=== PATIENT | female | born 1935 | race Caucasian/White ===

== ENCOUNTER 2016-05-03 08:56 | Emergency (ER) | payer OTHER ==
[~2016-05-03] VITALS: Ht 165.1 cm; Wt 63.5 kg
[~2016-05-03 08:56] MED LIST: FIBER625 MG PO; MULTI-DAY VITA1 EACH PO
[2016-05-03 09:07] VITALS: BP 152/84
== END 2016-05-03 09:32 | disposition admitted as inpatient to this hospital (09) ==
LOC: ERH 08:56
DX: M54.5 Low back pain (principal)

== ENCOUNTER 2016-05-09 07:09 | Emergency (ER) | payer OTHER ==
[~2016-05-09] VITALS: Ht 165.1 cm; Wt 63.5 kg
[2016-05-09 07:13] VITALS: BP 163/82
--- NOTE | 2016-05-09 07:46 | ED NECK/BACK PAIN COMPLAINT ---
See Addendum History of Present Illness General Chief Complaint: Low Back Pain/Injury Stated Complaint: LOWER BACK PAIN Source: patient, Exam Limitations: poor historian Vital Signs & Intake/Output Vital Signs & Intake/Output Vital Signs Date Time Temp Pulse Resp B/P Pulse O2 O2 Flow FiO2 Ox Delivery Rate 05/09 0713 97.5 88 16 163/82 98 Room Air Allergies Coded Allergies: propofol (10/19/15) Reconcile Medications Multivitamin (Multi-Day Vitamins) 1 EACH TABLET 1 TAB PO DAILY SUPPLEMENT ( Reported) Polycarbophil (Fiber) 625 MG TABLET 1,250 MG PO DAILY rectal bleed Triage Note: 80 YEAR OLD FEMALE STATES THAT SHE KEEPS COMING TO ER DUE TO BACK PAIN AND THAT SHE FEELS THE DOCTORS ARE NOT TEACHING HER ANY EXERCISES FOR THE BACK PAIN, WHEN ASKED ABOUT INJURY SHE STATES THAT SHE FELL MONTHS AGO , BUT THE PROBLEM IS THAT SHE HAS CANCER. WHEN THIS NURSE ASKED WHAT TYPE OF CANCER , PT STATES THAT SHE DOES NOT KNOW, PT DOES NOT KNOW THE NAME OF THE DOCTOR THAT DIAGNOSED HER AND SHE HAS NO PRIMARY AND DOES NOT GO FOR TREATMENTS. Triage Nurses Notes Reviewed? yes HPI: Patient presents for evaluation of low back pain that has been present for months. Patient attributes it to falling last year with problems symptoms. Patient is describing a severe intermittent sharp stabbing low back pain that gets worse with movement. Nothing seems to make her feel better. She denies any associated urinary or fecal incontinence or urinary retention. She denies paresthesias or leg pains. The patient denies any past medical history or current medications. Past History Travel History Traveled to [place] past 21 day No Medical History Any Pertinent Medical History? see below for history Neurological: NONE EENT: NONE Cardiovascular: NONE Respiratory: NONE Gastrointestinal: rectal bleeding intermittent RLQ pain Hepatic: NONE Renal: NONE Musculoskeletal: degen joint disease Psychiatric: NONE (pt denies ? 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 FATHER, , Age 80; Cause: Natural . Hx Contributory? No Review of Systems Review of Systems Constitutional: Reports: no symptoms. Eyes: Reports: no symptoms. Ears, Nose, Throat, Mouth: Reports: no symptoms. Respiratory: Reports: no symptoms. Cardiovascular: Reports: no symptoms. Gastrointestinal/Abdominal: Reports: no symptoms. Musculoskeletal: Reports: see HPI. Skin: Reports: no symptoms. Neurological/Psychological: Reports: no symptoms. All Other Systems: Reviewed and Negative Physical Exam Physical Exam Neck: see below Comments: Gen.: Well-nourished, well-developed, no acute respiratory distress. Head: Normocephalic, atraumatic. Eyes: Normal inspection bilaterally Ears: Normal inspection bilaterally Nose: Normal inspection, nasal cannula in place Throat/mouth : Moist mucosa Neck: Supple, full range of motion, no goiter Heart: Regular rate and rhythm Lungs: Quiet respirations Back: Decreased range of motion due to pain, mild bilateral sacroiliac tenderness, no ecchymoses and soft tissue swelling erythema. Extremities: Lower extremities: Normal deep tendon reflexes, normal sensation to light touch, no saddle paresthesias. Normal strength bilaterally. Neurologic: Cranial nerves grossly intact, speech is clear Skin: warm and dry Psychiatric: Calm, cooperative, no apparent delusions or hallucinations Progress Differential Diagnosis: cauda equina syn, herniated disc, myofascial strain Plan of Care: see d/c instruction. Comments: Patient's arrived to the room after physical examination. Although the patient states she has no primary care physician and doesn't know where to turn for her back pains, her states that she does have a primary care physician and has an appointment pending this week. Patient states she's never had physical therapy but according to her she began physical therapy but was unable to follow through with a full course. Patient's states that she never complies with follow-up and refuses to take medications. He seems somewhat frustrated the patient's presentation to the emergency department as he states that they have been to the emergency department plenty of times before and the problem really is with the patient herself does not comply with treatment plan. He states she has a history of spinal stenosis and feels that her back pain issues are related to this and not the fall she attributes it to. Patient states she will consider taking an anti-inflammatory and muscle relaxer. The patient's sensorium is clear and she answers questions readily. I suspect that the issues that have come up regarding the patient's inconsistent medical care or due to an underlying psychiatric disorder. Departure Departure Disposition: HOME OR SELF CARE Condition: Stable Clinical Impression Primary Impression: Low back pain Qualifiers: Chronicity: chronic Back pain laterality: bilateral Sciatica presence: without sciatica Qualified Codes: M54.5 - Low back pain; G89.29 - Other chronic pain Referrals: SATYA SANTIAGO MD (PCP/Family) Additional Instructions: Mobic and Flexeril as prescribed. Follow-up with your primary care doctor this week for reevaluation and possible referrals to physical therapy, a back specialist and further imaging studies. Return if any concerns or sudden worsening. Thank you for choosing the [facility] Emergency Department for your care. It was a pleasure to serve you today. Rafael Chicas M.D. [facility] Departure Forms: Customer Survey General Discharge Information Prescriptions: Current Visit Scripts Meloxicam (Mobic) 1 TAB PO DAILY #30 TAB Cyclobenzaprine HCl 1 TAB PO BID PRN MUSCLE SPASMS #30 TAB
[2016-05-09] MEDS ORDERED: MOBIC7.5 M1 PO (07:48)
[2016-05-09] MEDS ORDERED: CYCLOBENZAPRINE10 M1 PO (07:48)
== END 2016-05-09 07:59 ==
LOC: ERH 07:09
DX: M54.5 Low back pain (principal)

== ENCOUNTER 2016-07-24 09:23 | Emergency (ER) | payer OTHER ==
[~2016-07-24] VITALS: Ht 165.1 cm; Wt 59.0 kg
[~2016-07-24 09:23] MED LIST changes: +CYCLOBENZAPRINE10 M1 PO; +MOBIC7.5 M1 PO
[2016-07-24 09:41] VITALS: BP 142/82
--- NOTE | 2016-07-24 10:17 | ED GENERAL ADULT ---
History of Present Illness General Chief Complaint: General Adult Stated Complaint: PER PT SICK TO STOMACH, WEAK Source: patient Exam Limitations: no limitations Vital Signs & Intake/Output Vital Signs & Intake/Output ED Intake and Output 07/25 0000 07/24 1200 Intake Total 0 Output Total Balance 0 Intake, Oral 0 Patient 130 lb Weight Allergies Coded Allergies: propofol (UNKNOWN 07/24/16) Reconcile Medications Cyclobenzaprine HCl 10 MG TABLET 1 TAB PO BID PRN MUSCLE SPASMS Meloxicam (Mobic) 7.5 MG TABLET 1 TAB PO DAILY back pain Multivitamin (Multi-Day Vitamins) 1 EACH TABLET 1 TAB PO DAILY SUPPLEMENT ( Reported) Polycarbophil (Fiber) 625 MG TABLET 1,250 MG PO DAILY rectal bleed Triage Note: TRIAGE: PT TO ER STATES "I JUST FELT VERY WEAK AND THOUGHT I SHOULD MAKE SURE EVERYTHING WAS ALL RIGHT. I GET SICK TO MY STOMACH AND THEN IT GOES AWAY MOST OF THE TIME BUT TODAY I'M REALLY SICK TO MY STOMACH". ONSET DURING THE NIGHT. -VOMITING. DENIES ANY PAIN. Triage Nurses Notes Reviewed? yes HPI: This patient is an 81-year-old female who presented to the emergency department today for a chief complaint of, "I just feel weak." She reported that her symptoms started this morning when she woke up. She reported that she has not had anything to eat yet today and she is feeling hungry. Requesting a food tray. The patient denied any fevers, chills, chest pain, breathing, arm pain, jaw pain, numbness or tingling in her extremities, headaches, visual changes, abdominal pain, nausea, vomiting, urinary burning, urgency, frequency, blood in the urine, diarrhea, constipation, or blood in the stool. Patient reported, "no no I am fine I did not have any of that I feel fine." (PATEL RAMIREZ,AGUS) Past History Travel History Traveled to [place] past 21 day No Medical History Any Pertinent Medical History? see below for history Neurological: NONE EENT: NONE Cardiovascular: NONE Respiratory: NONE Gastrointestinal: rectal bleeding Hepatic: NONE Renal: NONE Musculoskeletal: degen joint disease Psychiatric: NONE (pt denies ? 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 FATHER, , Age 80; Cause: Natural . Hx Contributory? No (AGUS SWEENEY PA-C) Review of Systems Review of Systems Constitutional: Reports: see HPI. EENTM: Reports: no symptoms. Respiratory: Reports: no symptoms. Cardiovascular: Reports: no symptoms. GI: Reports: no symptoms. Genitourinary: Reports: no symptoms. Musculoskeletal: Reports: no symptoms. Skin: Reports: no symptoms. Neurological/Psychological: Reports: no symptoms. Hematologic/Endocrine: Reports: no symptoms. Immunologic/Allergic: Reports: no symptoms. All Other Systems: Reviewed and Negative (AGUS SWEENEY PA-C) Physical Exam Physical Exam General Appearance: well developed/nourished, no apparent distress, alert, awake Comments: Well-developed well-nourished person in no acute distress HEENT: Normal EENT exam, head normocephalic/atraumatic, moist mucous membranes PERRLA bilaterally Nose is atraumatic. External auditory canal and Tympanic membranes clear. Pharynx normal. No swelling or edema. Neck: Supple, no lymphadenopathy Back: Normal gait. Normal inspection Cardiovascular: Regular rate and rhythm with no murmurs, rubs, or gallops Respiratory: Chest nontender. No respiratory distress. Breath sounds clear to auscultation bilaterally with no wheezes, rales, rhonchi Abdomen: Soft and nondistended. Normoactive bowel sounds. No organomegaly. Nontender to palpation. No rebound or guarding Extremity: No edema, no calf tenderness to palpation, normal and equal pulses. Neuro: Alert oriented x3, cranial nerves II through XII grossly intact. Skin: No appreciable rash on exposed skin, skin is warm and dry. Psych: Mood and affect is normal Core Measures ACS in differential dx? No CVA/TIA Diagnosis: No Severe Sepsis Present: No Septic Shock Present: No (AGUS SWEENEY PA-C) Progress Differential Diagnoses I considered the following diagnoses in my evaluation of the patient: [General weakness, influenza, viral syndrome] Plan of Care: Laboratory Tests 07/24/16 1252: Lactic Acid Cancelled Initial ED EKG: normal axis, normal intervals, normal sinus rhythm, LVH, no ST T wave changes, 75 BPM Comments: 07/24/2016 10:35:20 AM: The patient reported that she needs to leave to go to [place] with her . (AGUS SWEENEY PA-C) Departure Departure Disposition: ER WALKOUT Condition: Stable Clinical Impression Primary Impression: Weakness Referrals: SATYA SANTIAGO MD (PCP/Family) Departure Forms: Customer Survey General Discharge Information (AGUS SWEENEY PA-C) PA/YARN TESTER Co-Sign Statement Statement: ED Attending supervision documentation- [X] I saw and evaluated the patient. I have also reviewed all the pertinent lab results and diagnostic results. I agree with the findings and the plan of care as documented in the PA's/YARN TESTER's documentation. [X] I have reviewed the ED Record and agree with the PA's/YARN TESTER's documentation. [] Additions or exceptions (if any) to the PAs/YARN TESTER's note and plan are summarized below: [] (TAWNY DORMAN MD) Critical Care Note Critical Care Note Critical Care Time: non-applicable (AGUS SWEENEY PA-C) Departure Forms: Customer Survey General Discharge Information (AGUS SWEENEY PA-C) PA/YARN TESTER Co-Sign Statement Statement: ED Attending supervision documentation- [X] I saw and evaluated the patient. I have also reviewed all the pertinent lab results and diagnostic results. I agree with the findings and the plan of care as documented in the PA's/YARN TESTER's documentation. [X] I have reviewed the ED Record and agree with the PA's/YARN TESTER's documentation. [] Additions or exceptions (if any) to the PAs/YARN TESTER's note and plan are summarized below: [] (TAWNY DORMAN MD) Critical Care Note Critical Care Note Critical Care Time: non-applicable (AGUS SWEENEY PA-C)
[2016-07-24 10:19] LABS: ABSOLUTE BASOPHIL COUNT 0 /CUMM (0.0-0.2); ABSOLUTE EOSINOPHIL COUNT 0.2 /CUMM (0.0-0.7); ABSOLUTE GRANULOCYTE CT 4.5 /CUMM (1.4-6.5); ABSOLUTE MONOCYTE COUNT 0.5 /CUMM (0.10-0.60); BASOPHIL % 0.4 % (0.0-2.0); EOSINOPHIL % 2.7 % (0-5); GRANULOCYTE % 73.4 % (42.2-75.2); HEMATOCRIT 45.8 % (37-47); MEAN CORPUSCULAR HGB 28.7 PG (27.0-31.0); MEAN CORPUSCULAR HGB CONC 32.8 G/DL (33.0-37.0); MEAN CORPUSCULAR VOLUME 87.7 FL (81.0-99.0); MEAN PLATELET VOLUME 8.1 FL (7.4-10.4); PLATELET COUNT 203 /CUMM (130-400); RBC DISTRIBUTION WIDTH 14.6 % (11.5-14.5); RED BLOOD CELL CT 5.22 /CUMM (4.20-5.40); WHITE BLOOD CELL COUNT 6.1 /CUMM (4.8-10.8)
[2016-07-24 10:21] LABS: PT 10.8 SEC (9.4-12.5); PTT 33 SEC (25-37)
== END 2016-07-24 11:16 ==
LOC: ERH 09:23
PROVIDERS: Emergency Medicine
DX: R53.1 Weakness (principal)
CPT/HCPCS: 93005; 93010

== ENCOUNTER 2016-09-07 09:51 | Inpatient (IN) | payer OTHER ==
[~2016-09-07] VITALS: Ht 167.6 cm; Wt 67.2 kg
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
--- NOTE | 2016-09-07 10:16 | NUR ---
PT REFUSING ALL LAB WORK
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
--- NOTE | 2016-09-07 10:19 | NUR ---
PT THEN STATES CALL MY SO HE CAN COME AND TAKE ME HOME
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
--- NOTE | 2016-09-07 10:43 | NUR ---
SPOUSE ALSO STATES HE CAN'T TAKE HER HOME THIS WAY AND REQUESTING PSYCH EVAL.
[2016-09-07 10:47] LABS: ABSOLUTE BASOPHIL COUNT 0 /CUMM (0.0-0.2); ABSOLUTE EOSINOPHIL COUNT 0 /CUMM (0.0-0.7); ABSOLUTE GRANULOCYTE CT 4.7 /CUMM (1.4-6.5); ABSOLUTE LYMPH COUNT 0.8 /CUMM (1.2-3.4); ABSOLUTE MONOCYTE COUNT 0.4 /CUMM (0.10-0.60); BASOPHIL % 0.4 % (0.0-2.0); EOSINOPHIL % 0.4 % (0-5); GRANULOCYTE % 79.4 % (42.2-75.2); HEMATOCRIT 43.8 % (37-47); MEAN CORPUSCULAR HGB CONC 33.9 G/DL (33.0-37.0); MEAN CORPUSCULAR VOLUME 85.7 FL (81.0-99.0); MEAN PLATELET VOLUME 8.1 FL (7.4-10.4); PLATELET COUNT 212 /CUMM (130-400); RED BLOOD CELL CT 5.11 /CUMM (4.20-5.40)
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
--- NOTE | 2016-09-07 11:11 | NUR ---
CRITICAL TEST RESULTS [id number] CAITY CROWELL 81 F TESTS AND RESULTS: LACTIC ACID 2.2 Results received and read back by: SERENA CHIU Results received date and time: 09/07/16 1111 The following provider was notified of the results, and read the results back: DR. MILNER Notified date and time: 09/07/16 at 1111
--- NOTE | 2016-09-07 11:12 | NUR ---
REFUSING CHEST XRAY, DR MILNER AWARE
--- NOTE | 2016-09-07 11:52 | NUR ---
DAUGHTER HERE FOR VISIT
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
--- NOTE | 2016-09-07 13:24 | NUR ---
PER PT'S DAUGHTER AND PTS HUSBANDS SON,THEY FEEL THAT IT ISNT SAFE FOR PT TO RETURN HOME SECONDARY TO SAFETY ISSUES.
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
--- NOTE | 2016-09-07 16:02 | NUR ---
PT AMBULATED TO AND FROM RESTROOM WITH ASSISTANCE OF THIS RN.
--- NOTE | 2016-09-07 18:00 | NUR ---
Late Case Mgmnt Note TSF: Met with and family. Introduced myself and Donna and our roles. Discussed plan with family, we spoke on multiple possible plans of care. Family told me that son Reggie was the POA. They believe he is financial and medical. Reggie's number is [phone] (cell). There seem to be multiple family dynamics present. I called and spoke with Reggie and he did confirm that he is the POA. I asked him to either bring us the POA paperwork or to please fax it to us. Initially he stated that he could only get it to me after 1600pm on 09/08/16. He did fax all the paperwork over to us tonight at approximately 1735pm. We did set up a family meeting for 09/08/16 at 1200pm (noon). We will be calling Reggie on his cell as he will be unable to make the in person. I have also updated the family out in the waiting room. Donna, Sandra and myself answered their questions at that time. I asked them whomever could come for this meeting, it would be good to all be on the same page for plan of care for patient. Family agreeable, though all not able to be present. states he will be here. All aware of time of meeting, to gather initially at 1145am in the er waiting room and to ask for case management. Spent several hours with and family ( in person and on phone) going over plans of care and setting up family meeting. Spoke with Umu about meeting and she will notify social work. Case management continuing to follow.
--- NOTE | 2016-09-07 20:13 | NUR ---
PT RESTING ON STRETCHER, SITTER AT BEDSIDE. NO COMPLAINTS AT THIS TIME. VSS. FOOD BOX ORDERED.
--- NOTE | 2016-09-07 23:30 | NUR ---
PATIENT AMBULATORY TO BATHROOM W/ SITTER W/ STABLE GAIT NOTED, MOVED FROM ROOM 9 TO ROOM 7 TO BE CLOSER TO BATHROOM FOR COMFORT.
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
--- NOTE | 2016-09-08 01:45 | NUR ---
PATIENT NOTED TO BE ATTEMPTING TO GET OUT OF BED STATING, "I'M GOING HOME." NOTED TO BE OPENING AND CLOSING DOOR TO ROOM, REORIENTED TO ROOM BY RN AND MST, SITTER REMAINS W/ PATIENT. PATIENT RELUCTANT TO VERBAL DEESCALATION, ATTEMPTS MADE TO SET LIMITS.
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
--- NOTE | 2016-09-08 02:37 | NUR ---
PATIENT REMAINS AWAKE, LIGHTS REMAIN DIMMED TO DECREASE STIMULI, SITTER REMAINS W/ PATIENT. PATIENT NOTED TO BE PULLING AT 4PT RESTRAINTS AT THIS TIME, WILL CONTINUE TO MONITOR.
--- NOTE | 2016-09-08 03:51 | NUR ---
PATIENT REMAINS AWAKE, INTERMITTENTLY PULLING AT RESTRAINTS. PATIENT CONTINUES TO TALK TO SELF INTERMITTENTLY IN ROOM, REMAINS CONFUSED. SITTER REMAINS W/ PATIENT.
--- NOTE | 2016-09-08 04:55 | NUR ---
PATIENT REMAINS AWAKE, ATTEMPTING TO SIT UP, PULLING AT RESTRAINTS INTERMITTENTLY STATING, "I'M GETTING OUT OF HERE!" SITTER REMAINS W/ PATIENT, LIGHTS REMAIN DIMMED TO DECREASE STIMULI. SITTER REORIENTING PATIENT W/ RN AND STAFF CONTINUES TO SET LIMITS.
--- NOTE | 2016-09-08 05:54 | NUR ---
PATIENT REMAINS AWAKE, STATING "I WANT TO LEAVE, I WANT TO GO GET MY DOG. TAKE THESE OFF, I'M GETTING OUT OF HERE!" PATIENT REMAINS IN 4PT RESTRAINTS FOR PATIENT' STAFF SAFETY. PATIENT PULLING AT RESTRAINTS, SITTING UP AND INTERMITTENT MILD THRASHING ON STRETCHER. SITTER REMAINS W/ PATIENT, REORIENTING TO ED AND POC, LIMTS CONTINUE TO BE SET.
--- NOTE | 2016-09-08 07:18 | NUR ---
ASSUMED CARE, AWAKE, REMAINS IN RESTRAINTS, (4 POINT HARD). SITTER IN ATTENDANCE.
--- NOTE | 2016-09-08 07:45 | NUR ---
STRUGGLING AGAINST RESTRAINTS, YELLING OUT NAMES.
--- NOTE | 2016-09-08 08:00 | NUR ---
BREAKFAST TRAY ORDERED.
--- NOTE | 2016-09-08 08:50 | NUR ---
TELEPHONE INQUIRY BY DAUGHTER , STATES PT CAN'T TAKE HALDOL, MAKES HER MORE AGITATED.
--- NOTE | 2016-09-08 09:01 | NUR ---
DAUGHTER MANDEEP CALLED, STATES PT CAN'T TAKE HALDOL, HYDROXYZINE WORKS FOR BETTER FOR HER.
--- NOTE | 2016-09-08 09:05 | NUR ---
CALMER NOW, FED BREAKFAST. ATTEMPTED TO USE BEDPAN, UNABLE TO VOID. LEFT UPPER AND RIGHT LOWER RESTRAINT REMOVED.
--- NOTE | 2016-09-08 09:15 | NUR ---
TELEPHINE INQUIRY BY LUIGI (SON AND POA). DOES NOT WANT HIS MOTHER TO GET HALDOL OR ATIVAN, AND IS WORKING ON GETTING HIS MOTHER INTO A FACILITY IN [facility].
--- NOTE | 2016-09-08 09:35 | NUR ---
REMAINING RESTRAINTS REMOVED, ASSISTED TO BATHROOM, VOIDED QS. REFUSED TO GO BACK TO ROOM. ORDER NO. 10 CALLED, ASSISTED TO STRETCHER.
--- NOTE | 2016-09-08 09:39 | NUR ---
BECOMING AGITATED, WANTS TO GET OOB AND GO TO ATHROOM, REFUSED PO ATARAX. MEDICATE WITH BENDARYL 50 MG IM.
--- NOTE | 2016-09-08 10:30 | NUR ---
SLEEPING AT PRESENT. SITTER IN ATTENDANCE.
--- NOTE | 2016-09-08 11:34 | NUR ---
Case Mgmnt TSF: Call placed to [facility] at [phone]. I spoke with Mary Ann--[employer] of Sales. She knew of patient and knew of meeting that there was scheduled for tomorrow by son Reggie. We discussed some of the behaviors over night and Mary Ann did not seem to feel they would be a major deterrent. Mary Ann is going to discuss with canteen operator Milly and Dana the commercial lines account executive of [facility]. They have a locked memory unit; they have a [facility] doctor: Dr. Marika Fitzgerald; and they have a visiting physician there. Mary Ann will get back to me. Case managment continuing to follow.
--- NOTE | 2016-09-08 11:40 | NUR ---
Case Mgmnt TSF: Call back from Mary Ann at [facility]. They are not worried about patient. They are faxing over an assessment for us to look over. They are requesting a TB test be placed. They would be able to take patient tomorrow if appropriate. They are aware we are having a family meeting at noon. Case management continuing to follow.
--- NOTE | 2016-09-08 11:45 | NUR ---
Case Mgmnt TSF: I went out and spoke with Mr. Medellin. He is aware that we are waiting for a couple other family members. We will get him when we are ready to go to meeting room. Case management continuing to follow.
--- NOTE | 2016-09-08 12:05 | NUR ---
Case Mgpurvit TSF: Donna and myself had Mr. Medellin and other family members follow us to [facility] for meeting. Left word with deputy united states marshal to please direct any other family members to us in that room if they came afterwards. Case marge continuing to follow.
--- NOTE | 2016-09-08 12:15 | NUR ---
PT ATTEMPTING TO GET OOB, RE-DIRECTED BACK TO BED WITH ASSISTANCE OF 3 STAFF.
--- NOTE | 2016-09-08 12:30 | NUR ---
UNSTEADY ON FEET, CONFUSED TO DATE , TIME AND PLACE, UNABLE TO STAND WITHOUT ASSISTANCE.
--- NOTE | 2016-09-08 12:40 | NUR ---
Case mgmnt TSF: Donna Sanz, Mikayla, myself, Mr. Vignesh, Desiree, Selena, Chelly (later), another family member were physically present and JASON Jamison ([phone]) was on the phone. LUCIANOGraciela paperwork had been faxed the previous night to us. Reggie stated that he was going to the bank after work (1600pm) and was then going to [facility] to sign paperwork and other correction items with them. We all discussed plan of care for patient. I will try and get onsite from [facility] today. I will call Milly back (Dir. Of Nursing) and see if she can come out. I will also go through paperwork from facility with family and get that back to [facility]. POA and family are in agreement with plan at this time. Case management continuing to follow.
--- NOTE | 2016-09-08 12:45 | NUR ---
CLIMBING OUT OF BED, ASSISTED TO BATHROOM, THEN REFUSED TO GET BACK TO BED, HITTING AND PICHING STAFF. SECURITY HERE TO ASSIST. PLACED IN NET BED . MEDICATED WITH ZYPREXA 10 MG IM LEFT DELTOID.
--- NOTE | 2016-09-08 13:00 | NUR ---
Case Mgmnt TSF: Family brought back to consult room to wait to visit patient. They are aware we need to go over some paperwork with them. Aware of plan and answered additional questions for them. Case mgmnt continuing to follow.
--- NOTE | 2016-09-08 13:15 | NUR ---
Case Mgmnt TSF: I called [facility] and spoke with Milly regarding possible onsite today for patient. Milly will not be able to onsite today but will be able to onsite tomorrow 09/09/16 between 830--0900am. They are requesting PPD and cxray for patient. I updated Dr. Chicas and SHERLEY Salter. Case mgmnt continuing to follow.
--- NOTE | 2016-09-08 14:06 | NUR ---
PT CALMER, SLEEPING INTERMITTATNLY, RESPIRATIONS NON-LABORED. SITTER IN ATTENDANCE. DAUGHTER VISITING.
--- NOTE | 2016-09-08 14:30 | NUR ---
Case Mgmnt TSF: I went in and met with family regarding paperwork for facility regarding ADL's. They answered questions as best they could. I will fax over information to them. Case mgmnt continuing to follow.
--- NOTE | 2016-09-08 15:15 | NUR ---
UPON WALKING INTO ROOM, PT WAS ATTEMPTING TO GET OUT OF BED, STAFF ALSO TRIED TO REDIRECT PATIENT BACK INTO BED, BUT PT IS REFUSING TO COOPERATE. PT IS BECOMING COMBATIVE WITH STAFF WHEN TRYING TO ASSIST INTO BED. SECURITY, THIS RN PRICILA Begum RN AND KOSTAS LEPE AT BEDSIDE TO ASSIST PT BACK TO BED.
--- NOTE | 2016-09-08 15:19 | NUR ---
PLACED IN HOSPITAL BED, AGITATED, TRYING TO GET OOB, 2 POINT SOFT RESTRAINTS INITIATED.
--- NOTE | 2016-09-08 15:20 | NUR ---
Case Mgmnt TSF: I faxed over information to Milly at [facility]. Fax confirmation received. Will follow up with them. Case mgpurvit continuing to follow.
--- NOTE | 2016-09-08 15:25 | NUR ---
DESPITE BEING IN TWO POINT RESTRAINTS, PT CONTINUES TO BE AGGRESSIVE AND TRIED TO KICK THIS RN, JUSTIN STAFF AT BEDSIDE TO ATTEMPT TO REDIRECT PT, WITHOUT SUCCESS. PT THREATENING STAFF AND TRYING TO GRAB AT STAFF. PT PLACED IN ADDITIONAL TWO RESTRAINTS WITH DR. VALLE AT BEDSIDE.
--- NOTE | 2016-09-08 15:34 | NUR ---
CARE ASSUMED BY THIS RN NOW. VERY UNCOOPERATIVE AND COMBATIVE. ASKING TO USE BATHROOM BUT REFUSES TO USE BED [facility]. PT EDUCATED ABOUT IMPORTANCE ABOUT HOW IT IS UNSAFE FOR PT TO AMBULATE DUE TO BEING A FALL RISK AND AMS. DR. VALLE AWARE.
--- NOTE | 2016-09-08 15:43 | NUR ---
Case Mgmnt TSF: [facility] from Milly-inspector exhaust emissions and Dana Exec Director. Numbers for Milly are as follows: (cell) [phone]; (phone) [phone]; (fax) [phone]. Main number for [place] is : . They received faxed clinical and their assessment form back. They are aware that we have ordered PPD and cxray per their request. They let us know that they may send [facility] out to do onsite assessment of the patient, but someone will be here tomorrow morning to do so. Case management continuing to follow.
--- NOTE | 2016-09-08 15:50 | NUR ---
PT INCONTINENT OF URINE. BED SHEETS CHANGED, SCOTT CARE PROVIDED AND GOWN CHANGED. PT STABLE AFTER ATIVAN. SITTER REMAINS AT BEDSIDE FOR SAFETY.
--- NOTE | 2016-09-08 16:42 | NUR ---
CONSULTING HOSPITALIST AT THIS TIME
--- NOTE | 2016-09-08 16:58 | NUR ---
HOUSE STAFF AT BEDSIDE FOR EVAL.
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
--- NOTE | 2016-09-08 17:31 | NUR ---
PT CONTINUES TO TRY AND GET OUT OF BED DESPITE RESTRAINTS. CONTINUES TO TRY AND GRAB AT OBJECTS. SITTER AT BEDSIDE TO REDIRECT PT TO REMAIN IN BED.
--- NOTE | 2016-09-08 18:00 | NUR ---
REPORT GIVEN TO RN ON FLOOR. PER HOUSE STAFF, PT DOES NOT NEED IV FOR ADMISSION.
--- NOTE | 2016-09-08 18:07 | NUR ---
PT HAS A BED 341-64
--- NOTE | 2016-09-08 18:40 | NUR ---
PT CONTINUES TO BE COMBATIVE, GRABBING AT STAFF AND BEING EXTREMELY VERBALLY DISRESPECTIVE AND SWEARING AND THREATING STAFF. DISTRIBUTION HERE. PT'S WIG AND BRACELET IN BELONGINGS BAG AND SENT UPSTAIRS WITH PATIENT.
--- NOTE | 2016-09-08 19:11 | NUR ---
PT ARRIVED TO FLOOR FROM ED AT 1845. PT ALERT, VERY CONFUSED. UNABLE TO HAVE A CONVERSATION AND UNABLE TO ANSWER QUESTIONS. PT REFUSING TO BE ASSESSED BY THIS RN. NO IV ACCESS. COM IN PLACE AND AT BEDSIDE. PT IN 4 POINT SOFT RESTRAINTS. ORDER CLARIFIED WITH CHARGE NURSE, NURSING PROPULSION MACHINERY SERVICE ENGINEER, AND MD. PER CHARGE NURSE, BEHAVIORAL RESTRAINTS TO STATE PT IS IN 4 POINT HARD RESTRAINTS BUT PT IS IN 4 POINT SOFT RESTRAINTS. WHEN MD IS ORDERING RESTRAINTS, UNABLE TO ORDER 4 POINT SOFT RESTRAINTS UNDER BEHAVIORAL. PT IS IN RESTRAINTS FOR BEHAVORIAL AND AGGRESSIVE BEHAVIOR. PT ON RA. WILL CONTINUE TO MONITOR.
--- NOTE | 2016-09-08 20:16 | NUR ---
MULTIPLE FAMILY MEMBERS CALLING ASKING FOR AN UPDATE ON PTS STATUS. JASON MEYERS CALLED TO CLARIFY WHO CAN RECEIVE INFORMATION. PER JASON, ANYONE THAT CARES ENOUGH ABOUT PT CAN RECEIVE INFORMATION INCLUDING BROTHERS, SISTERS, AND PTS CAN HAVE INFORMATION REGARDING PT.
[2016-09-08 21:20] VITALS: BP 128/72
--- NOTE | 2016-09-08 21:49 | NUR ---
AT THIS TIME, PT PLACED IN NET BED & 4 POINT SOFT RESTRAINTS DISCONTINUED. PT TOLERATED MOVEMENT WELL. CONTINOUS OBS MONITOR REMAINS AT BEDSIDE. SAFETY PRECAUTIONS MAINTAINED. WILL CONTINUE TO MONITOR.
--- NOTE | 2016-09-08 22:48 | NUR ---
2ND SET OF URINE ORDERED ON PT. RAIL SWITCH OPERATOR SCOTT NOTIFIED THAT PT IS INCONTINENT. PER RAIL SWITCH OPERATOR SCOTT, OK IF UNABLE TO GET SAMPLE.
[2016-09-09 07:02] VITALS: BP 130/80
[2016-09-09 08:12] LABS: ABSOLUTE BASOPHIL COUNT 0 /CUMM (0.0-0.2); ABSOLUTE EOSINOPHIL COUNT 0.2 /CUMM (0.0-0.7); ABSOLUTE GRANULOCYTE CT 4.7 /CUMM (1.4-6.5); ABSOLUTE LYMPH COUNT 1.5 /CUMM (1.2-3.4); ABSOLUTE MONOCYTE COUNT 0.6 /CUMM (0.10-0.60); BASOPHIL % 0.5 % (0.0-2.0); EOSINOPHIL % 2.8 % (0-5); GRANULOCYTE % 66.9 % (42.2-75.2); MEAN CORPUSCULAR HGB CONC 33.3 G/DL (33.0-37.0); MEAN PLATELET VOLUME 8.6 FL (7.4-10.4); PLATELET COUNT 169 /CUMM (130-400); RBC DISTRIBUTION WIDTH 13.9 % (11.5-14.5); RED BLOOD CELL CT 5.77 /CUMM (4.20-5.40); WHITE BLOOD CELL COUNT 7.1 /CUMM (4.8-10.8)
[2016-09-09 08:39] LABS: HEMATOCRIT 50.2 % (37-47)
--- NOTE | 2016-09-09 09:27 | Incdntl Nt Psy ---
Incidental Note Notation: Reviewed ED notes. Per family pt has had poor response to Haldol in past. Plan - We will discontinue Haldol and order Zyprexa - We will f/u with pt today
--- NOTE | 2016-09-09 11:03 | PN- Housestaff ---
DELIA MACK,CHERYL 09/09/16 1103: Subjective Follow-up For: Altered mental status and dementia Subjective: Patient is seen and examined at the bedside. She was inside the bladder neck and was sleeping comfortably. According to nurse, she was responding to verbal commands, and better than overnight in response. Review of Systems Constitutional: Denies: no symptoms. Comments: Cannot comment because of the patients clinical status. Objective Last 24 Hrs of Vital Signs/I&O Vital Signs Date Time Temp Pulse Resp B/P B/P Pulse O2 O2 Flow FiO2 Mean Ox Delivery Rate 09/09 1440 88 09/09 1434 98.5 100 18 120/80 94 Room Air 09/09 0702 97.7 86 16 130/80 96 Room Air 09/08 2120 99.7 98 22 128/72 95 Room Air 09/08 1824 98.0 108 15 142/94 98 Room Air Room Air Intake & Output 09/09 1600 09/09 0800 09/09 0000 Intake Total 600 0 Output Total 350 Balance 250 0 Intake, Oral 600 0 Number 1 Bowel Movements Output, Urine 350 Patient 67.188 kg Weight Weight Chair scale Measurement Method Physical Exam General Appearance: No Acute Distress Cardiovascular: Normal S1, Normal S2 Lungs: Clear to Auscultation, Normal Air Movement Extremities: No Clubbing, No Cyanosis, No Edema Current Medications: Current Medications Sig/Nicole Start time Last Medication Dose Route Stop Time Status Admin Enoxaparin Sodium 40 MG DAILY 09/09 1000 AC SC Haloperidol 1 MG Q8P PRN 09/08 1915 DC 09/08 IM 1938 Olanzapine 2.5 MG Q8P PRN 09/09 0930 AC PO Last 24 Hrs of Lab/Andry Results Last 24 Hrs of Labs/Mics: Laboratory Tests 09/09/16 0900: Urinalysis LIGHT H, Urine Color YEL, Urine Clarity HAZY H, Urine pH 6.0, Ur Specific [place] 1.025, Urine Protein TRACE H, Urine Ketones 15 H, Urine Nitrite POS H, Urine Bilirubin NEG, Urine Urobilinogen 0.2, Ur Leukocyte Esterase LARGE H, Ur Microscopic SEDIMENT EXAMINED, Urine RBC 5-10 H, Urine WBC 50-75 H, Ur Epithelial Cells MOD H, Urine Bacteria MOD H, Hyaline Casts RARE H, Urine Mucus FEW, Urine Hemoglobin MOD H, Urine Glucose NEG 09/09/16 0725: Anion Gap 10, Estimated GFR > 60, BUN/Creatinine Ratio 20.0, CBC w Diff NO MAN DIFF REQ, RBC 5.77 H, MCV 87.0, MCH 29.0, RDW 13.9, MPV 8.6, Gran % 66.9, Lymphocytes % 20.7, Monocytes % 9.1, Eosinophils % 2.8, Basophils % 0.5, Absolute Granulocytes 4.7, Absolute Lymphocytes 1.5, Absolute Monocytes 0.6, Absolute Eosinophils 0.2, Absolute Basophils 0, PUBS MCHC 33.3 Microbiology 09/09 0900 URINE ROUT: Urine Culture - RECD Assessment/Plan Assessment: Patient is an 81-year-old female with significant past medical history of dementia and rectal cancer.BIBA by EMS when she became combative with her family. Vital signs -temperature 98.5, pulse 100, respiratory rate 18, blood pressure 120/80, SPO2 94% on room air Plan - Dementia with combative behavior * According to nursing staff, patient is much more cooperative, so we will keep behavioral restraint and continuous sitter as needed * We'll follow the recommendation of psychiatrist. * We will avoid benzodiazepines and use haloperidol if there is agitation. * We ordered PPD, chest x-ray, CT scan, which is a requirement for rehabilitation placement. * CXR showed -Mild COPD changes without evidence of an acute intrathoracic process.There is a 1 cm nodular opacity not noted above overlying the midportion of the body of the scapula medially possibly artifact, * CT scan of the head -chronic microvascular ischemic disease and diffuse volume loss. * We will reevaluate the PPD tomorrow on 09/10/2016. * Patient may go to STR today or tomorrow. Diet - regular diet DVT prophylaxis - ALPS CODE STATUS - DNR/DNI Problem List: 1. Cognitive and behavioral changes Pain Ratin Pain Location: Not applicable Pain Goal: Remain pain free Pain Plan: As needed Tomorrow's Labs & Rationales: not required as patient is going to rehabilitation DVT/Prophylaxis: mechanical, pharmacological JS WELLS 09/09/16 1116: Attending MD Review Statement Attending Statement Attending MD Statement: examined this patient, discuss w/resident/PA/RN OBSERVATION, agreed w/resident/PA/RN OBSERVATION, discussed with family, reviewed EMR data (avail), discussed with nursing, discussed with case mgmt, reviewed images, amended to note Attending Assessment/Plan: A/P; 81-year-old female with history significant for advanced dementia, rectal cancer, who will be admitted to medicine with worsening behavior, agitation, danger to herself and others at home secondary to her unsafe behaviors. Patient porvided supprotive care , PPD placed in ER 09/08/16 at 15:17 pm. Consulted case management, social issues. gi/dvt prophyalxis DNR/I
--- NOTE | 2016-09-09 14:19 | NUR ---
0800- NET BED UNZIPPED. PT CALM AND NOT COMBATIVE. PT EATING BREAKFAST DR. ISABELLE NAJERA NOTIFIED OF DISCONTINUATION OF NET BED. SITTER STILL NEEDED DUE TO CONFUSION.
--- NOTE | 2016-09-09 14:26 | NUR ---
1345- PT LEFT FLOOR VIA STRETCHER FOR CT SCAN. DAUGHTER AND PT SAFETY MONITOR ACCOMPANIED PT TO TEST
--- NOTE | 2016-09-09 14:29 | CT SCAN REPORT ---
EXAMINATION: CT HEAD WITHOUT CONTRAST CLINICAL INFORMATION: History of rectal cancer. Altered mental status. COMPARISON: None. TECHNIQUE: Contiguous axial imaging was performed from the skull base to vertex without intravenous administration of contrast. DLP: 647.92 mGy-cm FINDINGS: There is no evidence of acute intracranial hemorrhage or territorial infarction. No abnormal mass effect or midline shift is seen. Estrella to white matter differentiation is well preserved. No extra-axial fluid collections are identified. There is mild commensurate prominence of the ventricles and sulci which is likely age-appropriate. There are multiple scattered areas of increased T2 and FLAIR signal in the periventricular subcortical white matter, most consistent with chronic microvascular ischemic changes. There is moderate hyperostosis frontalis interna. There are degenerative changes of the right temporomandibular joint. There are multiple clips in the hair bilaterally. The visualized orbits are unremarkable. The frontal sinuses are not developed. The mastoid air cells and visualized of the paranasal sinuses are well-aerated. There is debris in the left external auditory canal. IMPRESSION: 1. There are no acute bleeds or territorial infarcts. 2. There are changes consistent with chronic microvascular ischemic disease and diffuse volume loss.
--- NOTE | 2016-09-09 14:29 | NUR ---
1429- PT RETURNED TO FLOOR FROM CT SCAN
[2016-09-09 14:34] VITALS: BP 120/80
--- NOTE | 2016-09-09 14:44 | RADIOLOGY REPORT ---
EXAMINATION: XR PORTABLE CHEST CLINICAL INFORMATION: Altered mental status evaluate for aspiration and infection. COMPARISON: None TECHNIQUE: Portable frontal view of the chest was obtained. FINDINGS: The cardiomediastinal silhouette is unremarkable. The lungs appear mildly hyperexpanded. The lungs and pleural spaces appear clear without evidence of congestion, consolidation, or significant appearing effusion or atelectasis. There is no evidence of pneumothorax or pulmonary edema. Included osseous structures appear osteopenic without focal lesions.. IMPRESSION: Mild COPD changes without evidence of an acute intrathoracic process. There is a 1 cm nodular opacity not noted above overlying the midportion of the body of the scapula medially possibly artifact, PA and lateral views are recommended when possible.
--- NOTE | 2016-09-09 15:00 | Discharge Summary ---
Visit Information Visit Dates Admission Date: 09/08/16 Discharge Date: 09/09/16 Hospital Course Course Attending Physician: Dr. 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 She was exhibiting dangerous behavior in the house. In the emergency room she has been evaluated by psychiatry. According to their evaluation patient has worsening neurocognitive disorder and does not carry the capacity to make her own healthcare decisions and she cannot leave AMA. Ph/Ex at the time of admission: Vital Signs Date Time Temp Pulse Resp B/P B/P Pulse O2 O2 Flow FiO2 Mean Ox Delivery Rate 09/08 1613 78 15 125/61 94 Room Air Room Air 09/08 1528 98.0 118 15 158/80 95 Room Air Room Air 09/08 1052 98.9 72 20 122/59 100 Room Air 09/08 0849 99.2 90 20 159/72 94 09/08 0552 99.4 115 18 149/71 95 Room Air 09/08 0001 98.5 85 18 158/85 94 Room Air 09/07 2012 97.9 69 16 172/83 97 Room Air 09/07 1813 97.0 80 20 112/66 98 Room Air Somewhat sleepy after Ativan but waking up, confused and not oriented. CV: s1,s2 , rrr resp; clear abd: soft, nt, bs+. ext: no edema. Pertinent Labs on admission: Laboratory Tests 09/07 09/07 09/07 2359 1430 1303 Chemistry Lactic Acid (0.7 - 2.1 mmol/L) 0.8 Cancelled Urines Urine Color (YEL,AMB,STR) YEL Urine Clarity (CLEAR) HAZY H Urine pH (5.0 - 8.0) 7.0 Ur Specific [place] (1.001 - 1.035) 1.020 Urine Protein (NEG,<30 MG/DL) 30 H Urine Ketones (NEG) NEG Urine Nitrite (NEG) POS H Urine Bilirubin (NEG) NEG Urine Urobilinogen (0.1 - 1.0 EU/dl) 0.2 Ur Leukocyte Esterase (NEG) SMALL H Ur Microscopic SEDIMENT EXAMINED Urine RBC (0 - 5 /HPF) RARE Urine WBC (0 - 2 /HPF) 3-5 H Ur Epithelial Cells (NONE,FEW) MOD H Urine Bacteria (NEG/NONE) MANY H Urine Hemoglobin (NEG) TRACE-INTACT Urine Glucose (N MG/DL) 250 H 09/07 1040 Chemistry Sodium (137 - 145 mmol/L) 142 Potassium (3.5 - 5.1 mmol/L) 3.9 Chloride (98 - 107 mmol/L) 106 Carbon Dioxide (22 - 30 mmol/L) 24 Anion Gap (5 - 16) 13 BUN (7 - 17 mg/dL) 17 Creatinine (0.5 - 1.0 mg/dL) 0.9 Estimated GFR (>60 ml/min) 60 BUN/Creatinine Ratio (7 - 25 %) 18.9 Glucose (65 - 99 mg/dL) 115 H Lactic Acid (0.7 - 2.1 mmol/L) 2.2 H Calcium (8.4 - 10.2 mg/dL) 9.5 Total Bilirubin (0.2 - 1.3 mg/dL) 0.6 AST (14 - 36 U/L) 26 ALT (9 - 52 U/L) 37 Alkaline Phosphatase (<127 U/L) 57 Troponin I (< 0.11 ng/ml) < 0.01 Total Protein (6.3 - 8.2 g/dL) 6.4 Albumin (3.5 - 5.0 g/dL) 3.8 Globulin (1.9 - 4.2 gm/dL) 2.6 Albumin/Globulin Ratio (1.1 - 2.2 %) 1.5 Hematology CBC w Diff NO MAN DIFF REQ WBC (4.8 - 10.8 /CUMM) 6.0 RBC (4.20 - 5.40 /CUMM) 5.11 Hgb (12.0 - 16.0 G/DL) 14.9 Hct (37 - 47 %) 43.8 MCV (81.0 - 99.0 FL) 85.7 MCH (27.0 - 31.0 PG) 29.0 RDW (11.5 - 14.5 %) 14.0 Plt Count (130 - 400 /CUMM) 212 MPV (7.4 - 10.4 FL) 8.1 Gran % (42.2 - 75.2 %) 79.4 H Lymphocytes % (20.5 - 51.1 %) 13.0 L Monocytes % (1.7 - 9.3 %) 6.8 Eosinophils % (0 - 5 %) 0.4 Basophils % (0.0 - 2.0 %) 0.4 Absolute Granulocytes (1.4 - 6.5 /CUMM) 4.7 Absolute Lymphocytes (1.2 - 3.4 /CUMM) 0.8 L Absolute Monocytes (0.10 - 0.60 /CUMM) 0.4 Absolute Eosinophils (0.0 - 0.7 /CUMM) 0 Absolute Basophils (0.0 - 0.2 /CUMM) 0 PUBS MCHC (33.0 - 37.0 G/DL) 33.9 EKG on admission: SR, rate 77, No ST-T wave changes. QTc: 426 The patient was admitted to [facility] floor with worsening behavior, agitation, danger to herself and others at home secondary to her unsafe behaviors. Had one- to-one sitter. Psych consult appreciated. They recommended Zyprexa (2.5 mg PO Q8 PRN) as family reported patient did not respond to haldol in past. She was provided supportive care. PPD test was placed in ED 09/08/16 at 15:17 pm. Case management/social was consulted for placement. DVT PPX: SC lovenox Code status: DNI/DNR Allergies: Coded Allergies: Penicillins (UNKNOWN 09/07/16) propofol (UNKNOWN 07/24/16) Uncoded Allergies: NARCOTICS (UNKNOWN 09/07/16) Significant Procedures: Head CT 09/09/16 IMPRESSION: 1. There are no acute bleeds or territorial infarcts. 2. There are changes consistent with chronic microvascular ischemic disease and diffuse volume loss. CXR: 09/09/16 IMPRESSION: Mild COPD changes without evidence of an acute intrathoracic process. There is a 1 cm nodular opacity not noted above overlying the midportion of the body of the scapula medially possibly artifact, PA and lateral views are recommended when possible. Pertinent Lab Results: Laboratory Tests 09/09 09/09 0900 0725 Chemistry Sodium (137 - 145 mmol/L) 140 Potassium (3.5 - 5.1 mmol/L) 4.3 Chloride (98 - 107 mmol/L) 107 Carbon Dioxide (22 - 30 mmol/L) 23 Anion Gap (5 - 16) 10 BUN (7 - 17 mg/dL) 14 Creatinine (0.5 - 1.0 mg/dL) 0.7 Estimated GFR (>60 ml/min) > 60 BUN/Creatinine Ratio (7 - 25 %) 20.0 Hematology CBC w Diff NO MAN DIFF REQ WBC (4.8 - 10.8 /CUMM) 7.1 RBC (4.20 - 5.40 /CUMM) 5.77 H Hgb (12.0 - 16.0 G/DL) 16.7 H Hct (37 - 47 %) 50.2 H MCV (81.0 - 99.0 FL) 87.0 MCH (27.0 - 31.0 PG) 29.0 RDW (11.5 - 14.5 %) 13.9 Plt Count (130 - 400 /CUMM) 169 MPV (7.4 - 10.4 FL) 8.6 Gran % (42.2 - 75.2 %) 66.9 Lymphocytes % (20.5 - 51.1 %) 20.7 Monocytes % (1.7 - 9.3 %) 9.1 Eosinophils % (0 - 5 %) 2.8 Basophils % (0.0 - 2.0 %) 0.5 Absolute Granulocytes (1.4 - 6.5 /CUMM) 4.7 Absolute Lymphocytes (1.2 - 3.4 /CUMM) 1.5 Absolute Monocytes (0.10 - 0.60 /CUMM) 0.6 Absolute Eosinophils (0.0 - 0.7 /CUMM) 0.2 Absolute Basophils (0.0 - 0.2 /CUMM) 0 PUBS MCHC (33.0 - 37.0 G/DL) 33.3 Urines Urinalysis LIGHT H Urine Color (YEL,AMB,STR) YEL Urine Clarity (CLEAR) HAZY H Urine pH (5.0 - 8.0) 6.0 Ur Specific [place] (1.001 - 1.035) 1.025 Urine Protein (NEG,<30 MG/DL) TRACE H Urine Ketones (NEG) 15 H Urine Nitrite (NEG) POS H Urine Bilirubin (NEG) NEG Urine Urobilinogen (0.1 - 1.0 EU/dl) 0.2 Ur Leukocyte Esterase (NEG) LARGE H Ur Microscopic SEDIMENT EXAMINED Urine RBC (0 - 5 /HPF) 5-10 H Urine WBC (0 - 2 /HPF) 50-75 H Ur Epithelial Cells (NONE,FEW) MOD H Urine Bacteria (NEG/NONE) MOD H Hyaline Casts (0/LPF) RARE H Urine Mucus (FEW,NONE) FEW Urine Hemoglobin (NEG) MOD H Urine Glucose (N MG/DL) NEG Disposition Summary Disposition Principal Diagnosis: Worsening behavior, agitation Additional Diagnosis: Advanced dementia Rectal cancer diagnosed Discharge Disposition: SNF Discharge Instructions General Discharge Information Code Status: Do Not Resucitate/Intubat Patient's Diet: Regular Patient's Activity: As tolerated. Follow-Up Instructions/Appts: Follow up with Psych. Follow up with PCP within a week of discharge. Check EKG within few days while on Olanzapine. Medications at Discharge Discharge Medications: Start taking the following new medications: Olanzapine (Zyprexa) 2.5 MG TABLET 1 Tablet ORAL EVERY 8 HOURS NEEDED Qty = 30 No Refills The following medications have been changed: Old: New: Copies To: SATYA SANTIAGO MD
--- NOTE | 2016-09-09 15:09 | Patient Discharge Instructions ---
Discharge Instructions General Discharge Information You were seen/treated for: Worsening behavior, agitation Special Instructions: Follow up with Psych. Follow up with PCP within a week of discharge. Check EKG within few days while on Olanzapine. Diet Continue normal diet: Yes Activity Additional ACTIVITY Info: As tolerated. Acute Coronary Syndrome Inclusion Criteria At DC or during hospital stay patient has or had the following: ACS DIAGNOSIS No Discharge Core Measures Meds if any: Prescribed or Continued at Discharge Meds if any: NOT Prescribed or Continued at Discharge Congestive Heart Failure Inclusion Criteria At DC or during hospital stay patient has or had the following: CHF DIAGNOSIS No Discharge Core Measures Meds if any: Prescribed or Continued at Discharge Meds if any: NOT Prescribed or Continued at Discharge Cerebrovascular accident Inclusion Criteria At DC or during hospital stay patient has or had the following: CVA/TIA Diagnosis No Discharge Core Measures Meds if any: Prescribed or Continued at Discharge Meds if any: NOT Prescribed or Continued at Discharge Venous thromboembolism Inclusion Criteria VTE Diagnosis No VTE Type NONE VTE Confirmed by (Test) NONE Discharge Core Measures - Per Current guidelines, there needs to be overlap - treatment for the first 5 days of Warfarin therapy. - If discharged on Warfarin prior to 5 days of - overlap therapy, the patient will need to be - assessed for post discharge needs including - *Post discharge parental anticoagulation - *Warfarin and/or parental anticoagulation education - *Follow up date to check INR post discharge At least 5 days overlap therapy as Inpatient No Meds if any: Prescribed or Continued at Discharge Note: Overlap Therapy is Warfarin and Anticoagulant Meds if any: NOT Prescribed or Continued at Discharge
[2016-09-09] MEDS ORDERED: OLANZAPINE5 M2 PO (15:18)
[2016-09-09] MEDS ORDERED: ZYPREXA2.5 M1 PO (15:51)
--- NOTE | 2016-09-10 00:36 | NUR ---
1939 PATIENT IS ALERT AND CONFUSED. LUNG SOUNDS CLEAR. DENIES SHORTNESS OF BREATH VITAL SIGNS STABLE. DENIES CHEST PAIN. + PULSES. DENIES NUMBNESS/TINGLING SKIN C/D/I. STEADY GAIT. NO DISTRESS OR DISCOMFORT NOTED SITTER AT BEDSIDE.
== END 2016-09-09 19:40 | DRG 884 ==
LOC: ERH 09:51 → 2NA 09-08 17:20 → ERHI 09-08 17:20 → 2NA 09-08 17:20 → ENRESERV 09-08 17:41 → ENTRNSPT 09-08 18:17 → 2NA 09-08 18:45 → CMPTRNSPT 09-09 07:30 → ENPENDDIS 09-09 17:50 → 2NA 09-09 19:40
PROVIDERS: Emergency Medicine; Student in an Organized Health Care Education/Training Program; ADMIT Hospitalist
DX: F03.91 Unspecified dementia, unspecified severity, with behavioral disturbance (principal); J44.9 Chronic obstructive pulmonary disease, unspecified; C20 Malignant neoplasm of rectum; Z66 Do not resuscitate
CPT/HCPCS: 2NAP; 81001; 82436; 87086; 93005; 93010; 96372; 99291; J0696; J1200; J1630; J1650; J3490